=== PATIENT | female | born 1975 | race Caucasian/White ===

== ENCOUNTER 2016-07-21 00:50 | Emergency (ER) ==
[2016-07-21 01:05] VITALS: BP 124/83
[2016-07-21] MEDS ORDERED: DECADRON IM ONE (02:05)
[2016-07-21] MEDS ORDERED: PHENERGAN WITH CODEINE LIQUID PO ONE (02:14)
--- NOTE | 2016-07-21 02:16 | PROVIDER DOCUMENTATION ---
HPI-General Adult - General Source: patient - History of Present Illness -Gen Adult Nature of Presenting Problems: Pt is a 40 yof who presents to ER with CC of cold symptoms x4 days. Pt reports a white sputum productive cough that is worsened when lying down, sob, sore throat, chronic diarrhea, and 1 episode of vomiting yesterday after an extensive coughing fit. Pt denies F/N/c/p Location of Pain/Injury: reports: none Pain Radiation: reports: no radiation Severity: reports: moderate Onset/Duration: reports: 4 days ago Timing: reports: still present, constant Context/Activities at Onset: reports: cold exposure Modifying Factors: worse with: lying down Associated Symptoms: reports: cough (productive, white sputum), diarrhea, sinus congestion/drainage, shortness of breath, vomiting (x1, yesterday after coughing a lot), other (sore throat). denies: arm pain, back/neck pain, chest pain, constipation, fever/chills, headaches, loss of appetite, muscle aches <Christopher Butler - Last Filed: 07/21/16 02:18> <Rommel Cai - Last Filed: 07/21/16 02:20> - General Chief Complaint: Cold Symptoms Stated Complaint: CONGESTION, COUGH Time Seen by Provider: 07/21/16 01:56 Allergies/Adverse Reactions: Patient Allergies Allergy/AdvReac Type Severity Reaction Status Date / Time ketorolac tromethamine * Allergy Severe ANAPHYLAXIS Verified 07/21/16 01:50 [From Toradol] naproxen [From Naprosyn] Allergy Severe ANAPHYLAXIS Verified 07/21/16 01:50 tramadol Allergy Severe ANAPHYLAXIS Verified 07/21/16 01:50 Home Medications: Home Medication List Medication Instructions Recorded Confirmed Last Taken Type Dicyclomine [Bentyl] 20 mg PO TID AC PRN #30 capsule 07/16/16 07/21/16 07/17/16 Rx Hydrocodone/Acetaminophen [[place] 1 each PO Q4-6H PRN PRN #20 tablet 07/16/1607/16/16 Rx 7.5-325 Tablet] Codeine/Promethazine [Phenergan 10 ml PO TID PRN PRN #120 ml 07/21/16 Unknown Rx with Codeine] Review of Systems - Adult - REVIEW OF SYSTEMS - ADULT Constitutional: denies: chills, fever, fatique, night sweats Eyes: reports: no symptoms reported Ears, Nose, Mouth & Throat: reports: sinus problem (rhinorrhea), throat pain. denies: ear discharge, ear pain, nose pain, mouth/dental pain, hoarseness, throat swelling Cardiovascular: reports: no symptoms reported Respiratory: reports: chronic cough, cough, excessive sputum production (white) , shortness of breath. denies: dyspnea on exertion, hemoptysis, pleurisy, wheezing Gastrointestinal: reports: diarrhea, vomiting (x1 yesterday after coughing fit) . denies: abdominal pain, constipation, nausea, poor appetite Genitourinary: reports: no symptoms reported Musculoskeletal: reports: no symptoms reported Integumentary: reports: no symptoms reported Neurological: reports: no symptoms reported Psychiatric: reports: no symptoms reported Endocrine: reports: no symptoms reported Hematologic/Lymphatic: reports: no symptoms reported Allergic/Immunologic: reports: no symptoms reported All Other Systems: Reviewed and Negative <Christopher Butler - Last Filed: 07/21/16 02:18> Past History - Adult - PAST MEDICAL HISTORY-ADULT Review of Records: reports: Nursing Assessment Review, Medications Reviewed Cardiovascular: reports: HTN, hyperlipidemia Respiratory: reports: asthma Gastrointestinal: reports: GI bleed, IBS Neurological: reports: TIA Psychiatric: reports: anxiety, bipolar, depression, other (DID, Multiple Personality ) Endocrine/Immune: reports: Diabetes - PRIOR SURGERIES/PROCEDURES Surgical/Procedure History: reports: cholecystectomy, hysterectomy, , tonsillectomy, orthopedic (extremity) (shoulder), gastric bypass - IMMUNIZATION STATUS Childhood Immunizations: See Nurse Assessment Flu Vaccine: See Nurse Assessment <Christopher Butler - Last Filed: 07/21/16 02:18> Physical Exam-General - PHYSICAL EXAM-ADULT Initial Vital Signs Reviewed: Yes - CONSTITUTIONAL General Appearance: appears well, alert, mild distress. negative: lethargic, slow to respond, obtunded, combative - HEAD, EARS, NOSE, MOUTH & THROAT HENMT: normocephalic/atraumatic, moist mucous membranes, normal ENT inspection, TMs normal, pharynx normal. negative: pharyngeal erythema, tonsillar exudate, TM abnormal, TM obscurred by cerumen - RESPIRATORY Respiratory: chest non-tender, lungs clear, normal breath sounds. negative: respiratory distress, decreased breath sounds, accessory muscle use, wheezing - CARDIOVASCULAR Cardiovascular: normal peripheral pulses, regular rate, rhythm. negative: bradycardia, tachycardia, diastolic murmur, systolic murmur, irregularly irregular - GASTROINTESTINAL (ABDOMEN) Abdominal Exam: normal bowel sounds, non tender, soft. negative: abnormal bowel sounds, distended, tenderness, mass - LYMPHATIC Lymphatic: no adenopathy. negative: axilla node tender, cervical node tenderness, inguinal node tender - MUSCULOSKELETAL Back Exam: no CVA tenderness, no vertebral tenderness. negative: CVA tenderness , decreased range of motion, ecchymosis, muscle spasm, swelling, vertebral tenderness - SKIN Integumentary: normal color, normal turgor, warm/dry. negative: abrasion(s), blanching, diaphoresis, erythema, pallor, swelling, tenderness, warm - NEUROLOGIC Neurologic: grossly normal, no motor/sensory deficits - PSYCHIATRIC Psych/Mental Status: normal mood/affect, normal thought content, normal thought process, oriented x 3 <Christopher Butler - Last Filed: 07/21/16 02:18> Progress - PLAN OF CARE/RESULTS Progress/Plan/Lab Results: POC: labs/chest x-ray Vital Signs - 24 hr 07/21/16 01:04 Temperature 97.5 F L Pulse Rate 75 Respiratory 18 Rate Blood Pressure 124/83 O2 Sat by Pulse 100 Oximetry Orders Category Date Time Status CHEST-2 VIEWS [RAD] Stat Exams 07/21/16 01:05 Taken Flu Swab [INFLUENZA SCREEN A/B] Stat Lab 07/21/16 01:05 Completed Codeine/Promethazine [Phenergan with Codeine Liquid] Med 07/21/16 02:14 Discontinued 10 ml PO NOW ONE Dexamethasone [Decadron] Med 07/21/16 02:05 Discontinued 20 mg IM NOW ONE - XRAY 1 XRAY: Bilateral XRAY Study: Chest Impression: See EMR Report XRAY Interpretation: Normal <Christopher Butler - Last Filed: 07/21/16 02:18> Departure - Departure Time of Disposition Order: 02:19 Certified Medical Emergency: Emergent <Christopher Butler - Last Filed: 07/21/16 02:18> - Departure Time of Disposition Order: 02:19 Certified Medical Emergency: Emergent <Rommel Cai - Last Filed: 07/21/16 02:20> - Departure DIAGNOSIS: URI (upper respiratory infection) Qualifiers: URI type: unspecified URI Qualified Code(s): J06.9 - Acute upper respiratory infection, unspecified Disposition: HOME 01 Condition: Stable Prescriptions: Codeine/Promethazine [Phenergan with Codeine] 10 ml PO TID PRN PRN #120 ml PRN Reason: Cough Referrals: Carmella Huizar CRNP [Primary Care Provider] - Attestation - Scribe Verification/Attestation Scribe:: Christopher Butler Acting as Scribe for:: Rommel Cai Scribe documention review:: This chart was documented by a scribe and accurately reflects the service the provider performed and the decisions made by the provider. <Christopher Butler - Last Filed: 07/21/16 02:18> Physician Attestation
--- NOTE | 2016-07-21 09:49 | Diag Imaging Result Document ---
PROCEDURE NAME: CHEST-2 VIEWS - 07/21/2016 TWO VIEWS OF THE CHEST: FINDINGS: There is no evidence of acute cardiac or pulmonary disease. Compared to 07/06/2015, there has been no significant change in the appearance of the chest. IMPRESSION: No acute disease.
== END 2016-07-21 02:29 | disposition home or self-care (01) ==
LOC: ED 00:50
DX: J06.9 Acute upper respiratory infection, unspecified (principal); R05 Cough; J34.89 Other specified disorders of nose and nasal sinuses; R07.0 Pain in throat; R09.3 Abnormal sputum; R19.7 Diarrhea, unspecified; I10 Essential (primary) hypertension; E78.5 Hyperlipidemia, unspecified; Z86.73 Personal history of transient ischemic attack (TIA), and cerebral infarction without residual deficits; E11.9 Type 2 diabetes mellitus without complications; Z98.84 Bariatric surgery status
CPT/HCPCS: 71020; 87804

== ENCOUNTER 2016-08-11 10:41 | Emergency (ER) | payer OTHER ==
--- NOTE | 2016-08-11 10:53 | ED EKG INTERP ---
EKG Interpretation - EKG Time of EKG reading by physician:: 10:48 EKG Read and Signed by:: John Sweet EKG Interpretation (*Must complete 3 of following elements*): Abnormal Rate: 78 (cannot rule out anterior infarct, age undetermined) Rhythm: NSR Attestation - Scribe Verification/Attestation Scribe:: Kim Fisher Acting as Scribe for:: John Sweet Scribe documention review:: This chart was documented by a scribe and accurately reflects the service the provider performed and the decisions made by the provider.
[2016-08-11] MEDS ORDERED: ASPIRIN PO STA (11:05)
[2016-08-11] MEDS ORDERED: ZOFRAN IV ONE (11:10)
[2016-08-11] MEDS ORDERED: NS 1,000 ML IV ONE (11:10)
[2016-08-11] MEDS ORDERED: PEPCID IV ONE (11:11)
[2016-08-11] MEDS ORDERED: SODIUM CHLORIDE 0.9% INJ ONE (11:11)
[2016-08-11 11:21] LABS: MANUAL DIFF NEEDED? NO
[2016-08-11 11:25] LABS: BASO% 0.6 % (0.0-0.8); EOS# 0.17 X1000 (0.0-0.7); EOS% 3.2 % (0.0-10.0); HEMATOCRIT 38.9 % (37.0-47.0); HEMOGLOBIN 13.3 g/dL (12.0-16.0); LYMPH# 2.08 X1000 (1.2-3.4); MCH 31.3 PG (27-31); MCHC 34.2 g/dL (33-37); MCV 91.5 FL (81-99); MONO# 0.33 X1000 (0.11-0.59); MONO% 6.2 % (1.7-9.3); MPV 11.6 FL (7.4-10.4); PLT 214 X1000 (130-400); RBC 4.25 XMIL (4.2-5.4)
[2016-08-11 11:35] LABS: AGAP 12; ALBUMIN 4.5 g/dL (3.5-5.0); ALKALINE PHOSPHATASE 94 U/L (32-104); BUN 9 mg/dL (8-22); CALCIUM 8.9 mg/dL (8.8-10.2); CHLORIDE 99 mmol/L (98-107); CK PROFILE 167 U/L (24-173); COSMO 272; GOT 20 U/L (10-30); GPT 14 U/L (10-36); POTASSIUM 4.2 mmol/L (3.5-5.1); SODIUM 137 mmol/L (136-145); TCO2 26 mmol/L (25-35); TOTAL BILIRUBIN 0.24 mg/dL (0.20-1.00); TOTAL PROTEIN 6.9 g/dL (6.3-8.3)
[2016-08-11 11:41] LABS: INR 0.99; PROTIME 10.5 Seconds (9.2-11.7)
--- NOTE | 2016-08-11 12:03 | PROVIDER DOCUMENTATION ---
HPI-Chest Pain - General Chief Complaint: Shortness of Breath Stated Complaint: SOB Time Seen by Provider: 08/11/16 10:54 Source: patient Allergies/Adverse Reactions: Patient Allergies Allergy/AdvReac Type Severity Reaction Status Date / Time ketorolac tromethamine * Allergy Severe ANAPHYLAXIS Verified 08/11/16 11:05 [From Toradol] naproxen [From Naprosyn] Allergy Severe ANAPHYLAXIS Verified 08/11/16 11:05 tramadol Allergy Severe ANAPHYLAXIS Verified 08/11/16 11:05 Home Medications: Home Medication List Medication Instructions Recorded Confirmed Last Taken Type Omeprazole 20 mg PO DAILY #20 tablet. 08/11/16 Unknown Rx - History of Present Illness-CP Nature of Presenting Problem: Woke this am with heaviness in chest, felt lightheaded. Had several episodes of vomiting. No prior hx of heart problems. Has had recent cough, no fever. Has recently che driving on long car trip Location: reports: substernal Chest Pain Radiation: reports: no radiation Quality of Pain: reports: pressure Onset/Duration: 4-6 hours ago Timing: still present Context/Activities at Onset: reports: none Associated Symptoms: reports: dizziness, nausea, vomiting Review of Systems - Adult - REVIEW OF SYSTEMS - ADULT Constitutional: reports: see HPI Eyes: reports: no symptoms reported Ears, Nose, Mouth & Throat: reports: no symptoms reported Cardiovascular: reports: see HPI, chest pain Respiratory: reports: see HPI, shortness of breath Gastrointestinal: reports: nausea, vomiting Genitourinary: reports: no symptoms reported Musculoskeletal: reports: no symptoms reported Integumentary: reports: no symptoms reported Past History - Adult - PAST MEDICAL HISTORY-ADULT Review of Records: reports: Nursing Assessment Review, Medications Reviewed Major Childhood Illnesses: reports: history unknown Cardiovascular: reports: HTN, hyperlipidemia Respiratory: reports: asthma Gastrointestinal: reports: GI bleed, IBS Neurological: reports: TIA Psychiatric: reports: anxiety, bipolar, depression, other (DID, Multiple Personality ) Endocrine/Immune: reports: Diabetes - PRIOR SURGERIES/PROCEDURES Surgical/Procedure History: reports: cholecystectomy, hysterectomy, , tonsillectomy, orthopedic (extremity) (shoulder), gastric bypass - IMMUNIZATION STATUS Childhood Immunizations: See Nurse Assessment Flu Vaccine: See Nurse Assessment Physical Exam-General - PHYSICAL EXAM-ADULT Initial Vital Signs Reviewed: Yes - CONSTITUTIONAL General Appearance: appears well, alert, no apparent distress - EYES Eyes: PERRL/EOMI - HEAD, EARS, NOSE, MOUTH & THROAT HENMT: normocephalic/atraumatic, moist mucous membranes, normal ENT inspection - NECK Neck: non-tender, full range of motion, supple - RESPIRATORY Respiratory: lungs clear, normal breath sounds, other (mild midline tenderness to palpation) - CARDIOVASCULAR Cardiovascular: normal peripheral pulses, regular rate, rhythm, no edema, no gallop, no JVD, no murmur - GASTROINTESTINAL (ABDOMEN) Abdominal Exam: normal bowel sounds, soft, no organomegaly, tenderness (mild epigastric) - LYMPHATIC Lymphatic: no adenopathy - MUSCULOSKELETAL Back Exam: normal inspection, no CVA tenderness, no vertebral tenderness Extremity: normal range of motion, non-tender, normal inspection, no pedal edema - SKIN Integumentary: normal color, normal turgor, warm/dry - NEUROLOGIC Neurologic: grossly normal, no motor/sensory deficits Progress - PLAN OF CARE/RESULTS Progress/Plan/Lab Results: Laboratory Tests 08/11/16 08/11/16 08/11/16 10:59 10:59 10:59 WBC 5.33 RBC 4.25 Hgb 13.3 Hct 38.9 MCV 91.5 MCH 31.3 H MCHC 34.2 RDW Std Deviation 12.5 Plt Count 214 MPV 11.6 H Immature Gran % (Auto) 0.0 Neut % (Auto) 51.0 Lymph % (Auto) 39.0 [place] % (Auto) 6.2 Eos % (Auto) 3.2 Baso % (Auto) 0.6 Immature Gran # (Auto) 0.00 Neut # (Auto) 2.72 Lymph # (Auto) 2.08 [place] # (Auto) 0.33 Eos # (Auto) 0.17 Baso # (Auto) 0.03 PT INR PTT (Actin FS) D-Dimer 0.20 Sodium 137 Potassium 4.2 Chloride 99 Carbon Dioxide 26 Anion Gap 12 BUN 9 Creatinine 0.8 Estimated GFR/1.73 m2 > 60 BUN/Creatinine Ratio 11 Glucose 83 Calculated Osmolality 272 Calcium 8.9 Magnesium 2.0 Total Bilirubin 0.24 AST 20 ALT 14 Alkaline Phosphatase 94 Creatine Kinase 167 Troponin T Lan-S-Dvcwhckitre Pept Total Protein 6.9 Albumin 4.5 Globulin 2.4 Albumin/Globulin Ratio 1.9 Amylase Lipase 08/11/16 08/11/16 08/11/16 10:59 10:59 10:59 WBC RBC Hgb Hct MCV MCH MCHC RDW Std Deviation Plt Count MPV Immature Gran % (Auto) Neut % (Auto) Lymph % (Auto) [place] % (Auto) Eos % (Auto) Baso % (Auto) Immature Gran # (Auto) Neut # (Auto) Lymph # (Auto) [place] # (Auto) Eos # (Auto) Baso # (Auto) PT 10.5 INR 0.99 PTT (Actin FS) 25.0 D-Dimer Sodium Potassium Chloride Carbon Dioxide Anion Gap BUN Creatinine Estimated GFR/1.73 m2 BUN/Creatinine Ratio Glucose Calculated Osmolality Calcium Magnesium Total Bilirubin AST ALT Alkaline Phosphatase Creatine Kinase Troponin T < 0.010 Jqw-A-Dlvqjdmacuc Pept 32 Total Protein Albumin Globulin Albumin/Globulin Ratio Amylase Lipase 08/11/16 08/11/16 14:58 14:58 WBC RBC Hgb Hct MCV MCH MCHC RDW Std Deviation Plt Count MPV Immature Gran % (Auto) Neut % (Auto) Lymph % (Auto) [place] % (Auto) Eos % (Auto) Baso % (Auto) Immature Gran # (Auto) Neut # (Auto) Lymph # (Auto) [place] # (Auto) Eos # (Auto) Baso # (Auto) PT INR PTT (Actin FS) D-Dimer Sodium Potassium Chloride Carbon Dioxide Anion Gap BUN Creatinine Estimated GFR/1.73 m2 BUN/Creatinine Ratio Glucose Calculated Osmolality Calcium Magnesium Total Bilirubin AST ALT Alkaline Phosphatase Creatine Kinase 129 Troponin T < 0.010 Sjg-X-Tqiukugbabm Pept Total Protein Albumin Globulin Albumin/Globulin Ratio Amylase 42 Lipase 23 Orders Category Date Time Status Cardiac Monitoring DIRECTED Care 08/11/16 11:06 Active Saline Loc NOW Care 08/11/16 11:06 Active CHEST-PORTABLE [RAD] Stat Exams 08/11/16 11:11 Completed AMYLASE [CHEM] Stat Lab 08/11/16 14:58 Completed CBC WITH ELECTRONIC DIFF [HEME] Stat Lab 08/11/16 10:59 Completed CK PROFILE [SP CHEM] Stat Lab 08/11/16 10:59 Completed CK PROFILE [SP CHEM] Stat Lab 08/11/16 14:58 Completed COMPREHENSIVE METABOLIC PANEL [CHEM] Stat Lab 08/11/16 10:59 Completed D-DIMER [CHEM] Stat Lab 08/11/16 10:59 Completed LIPASE [CHEM] Stat Lab 08/11/16 14:58 Completed MAGNESIUM [CHEM] Stat Lab 08/11/16 10:59 Completed PRO B-NATRIURETIC PEPTIDE Stat Lab 08/11/16 10:59 Completed PROTIME WITH INR [COAG] Stat Lab 08/11/16 10:59 Completed PTT [COAG] Stat Lab 08/11/16 10:59 Completed TROPONIN T Stat Lab 08/11/16 10:59 Completed TROPONIN T Stat Lab 08/11/16 14:58 Completed 0.9% Sodium Chloride Inj [Ns] 1,000 ml Med 08/11/16 11:10 Discontinued IV 999 mls/hr Acetaminophen [Tylenol] Med 08/11/16 13:46 Discontinued 1,000 mg PO NOW ONE Aspirin Med 08/11/16 11:05 Discontinued 325 mg PO STAT STA Famotidine [Pepcid] Med 08/11/16 11:11 Discontinued 20 mg IV NOW ONE Lido/Rader Alk/Al&mg Hydrox [G.i. Cocktail] Med 08/11/16 13:44 Discontinued 30 ml PO NOW ONE Ondansetron [Zofran] Med 08/11/16 11:10 Discontinued 4 mg IV NOW ONE Sodium Chloride 0.9% Med 08/11/16 11:11 Discontinued 5 - 10 ml INJ NOW ONE EKG [EKG] Stat Ther 08/11/16 10:43 Ordered EKG [EKG] Stat Ther 08/11/16 13:50 Ordered Vital Signs Temp Pulse Resp BP Pulse Ox 08/11/16 16:06 98.1 F 63 17 97/69 98 08/11/16 15:58 71 16 97/69 98 08/11/16 13:33 66 13 97/52 100 08/11/16 13:23 63 24 119/76 100 08/11/16 10:44 97.4 F L 81 18 137/85 100 ketorolac tromethamine * [From Toradol] Allergy (Severe, Verified 08/11/16 11:05 ) ANAPHYLAXIS naproxen [From Naprosyn] Allergy (Severe, Verified 08/11/16 11:05) ANAPHYLAXIS tramadol Allergy (Severe, Verified 08/11/16 11:05) ANAPHYLAXIS Omeprazole 20 mg PO DAILY #20 tablet. 08/11/16 Laboratory 08/11/16 08/11/16 08/11/16 14:58 14:58 10:59 WBC RBC Hgb Hct MCV MCH MCHC RDW Std Deviation Plt Count MPV Immature Gran % (Auto) Neut % (Auto) Lymph % (Auto) [place] % (Auto) Eos % (Auto) Baso % (Auto) Immature Gran # (Auto) Neut # (Auto) Lymph # (Auto) [place] # (Auto) Eos # (Auto) Baso # (Auto) PT INR PTT (Actin FS) D-Dimer Sodium Potassium Chloride Carbon Dioxide Anion Gap BUN Creatinine Estimated GFR/1.73 m2 BUN/Creatinine Ratio Glucose Calculated Osmolality Calcium Magnesium Total Bilirubin AST ALT Alkaline Phosphatase Creatine Kinase 129 Troponin T < 0.010 < 0.010 Pkt-G-Rnwcevabkuy Pept Total Protein Albumin Globulin Albumin/Globulin Ratio Amylase 42 Lipase 23 08/11/16 08/11/16 08/11/16 10:59 10:59 10:59 WBC RBC Hgb Hct MCV MCH MCHC RDW Std Deviation Plt Count MPV Immature Gran % (Auto) Neut % (Auto) Lymph % (Auto) [place] % (Auto) Eos % (Auto) Baso % (Auto) Immature Gran # (Auto) Neut # (Auto) Lymph # (Auto) [place] # (Auto) Eos # (Auto) Baso # (Auto) PT 10.5 INR 0.99 PTT (Actin FS) 25.0 D-Dimer 0.20 Sodium Potassium Chloride Carbon Dioxide Anion Gap BUN Creatinine Estimated GFR/1.73 m2 BUN/Creatinine Ratio Glucose Calculated Osmolality Calcium Magnesium Total Bilirubin AST ALT Alkaline Phosphatase Creatine Kinase Troponin T Zdk-X-Txhylyenyyb Pept 32 Total Protein Albumin Globulin Albumin/Globulin Ratio Amylase Lipase 08/11/16 08/11/16 10:59 10:59 WBC 5.33 RBC 4.25 Hgb 13.3 Hct 38.9 MCV 91.5 MCH 31.3 H MCHC 34.2 RDW Std Deviation 12.5 Plt Count 214 MPV 11.6 H Immature Gran % (Auto) 0.0 Neut % (Auto) 51.0 Lymph % (Auto) 39.0 [place] % (Auto) 6.2 Eos % (Auto) 3.2 Baso % (Auto) 0.6 Immature Gran # (Auto) 0.00 Neut # (Auto) 2.72 Lymph # (Auto) 2.08 [place] # (Auto) 0.33 Eos # (Auto) 0.17 Baso # (Auto) 0.03 PT INR PTT (Actin FS) D-Dimer Sodium 137 Potassium 4.2 Chloride 99 Carbon Dioxide 26 Anion Gap 12 BUN 9 Creatinine 0.8 Estimated GFR/1.73 m2 > 60 BUN/Creatinine Ratio 11 Glucose 83 Calculated Osmolality 272 Calcium 8.9 Magnesium 2.0 Total Bilirubin 0.24 AST 20 ALT 14 Alkaline Phosphatase 94 Creatine Kinase 167 Troponin T Apy-C-Bxicnphfybk Pept Total Protein 6.9 Albumin 4.5 Globulin 2.4 Albumin/Globulin Ratio 1.9 Amylase Lipase - EKG 1 Time of EKG reading by physician:: 11:00 EKG Read and Signed by:: Laxmi Ruth EKG Interpretation (*Must complete 3 of following elements*): Normal 2 Time of EKG reading by physician:: 14:30 EKG Read and Signed by:: Laxmi Ruth EKG Interpretation (*Must complete 3 of following elements*): Normal - XRAY 1 XRAY Study: Chest (normal) Impression: Normal Departure - Departure Time of Disposition Order: 15:46 DIAGNOSIS: Chest pain of uncertain etiology, GERD (gastroesophageal reflux disease) Disposition: HOME 01 Certified Medical Emergency: Emergent Condition: Stable Additional Instructions: Rest. Use tylenol for discomfort. Take omeprozole 20 mg daily for your stomach. Stop smoking. Avoid alcohol. See your regular doctor if symptoms not resolved in 2 days. You need further evaluation. Return to emergency department if your symptoms worsen. ED Follow Up Instructions: You have been treated by a care provider in the Emergency Department. These instructions are being provided to you so you can have an understanding of how to care for yourself upon discharge. Upon discharge from the Emergency Department, you are responsible for making arrangements for follow-up care by a physician of your choice. Take all prescribed medications as directed. Return to the Emergency Department immediately for any new or worsening symptoms. You may call the Physician Referral phone number at [phone] to obtain a list of Physicians who are taking new patients. Prescriptions: Omeprazole 20 mg PO DAILY #20 tablet. Referrals: Carmella Huizar CRNP [Primary Care Provider] - Forms: Return to School/Parent Work Instructions: Indigestion, Tdmm-al-Wdab, Nonspecific Chest Pain, Ghfl-km-Ojtf
[2016-08-11] MEDS ORDERED: G.I. COCKTAIL PO ONE (13:44)
[2016-08-11] MEDS ORDERED: TYLENOL PO ONE (13:46)
--- NOTE | 2016-08-11 14:33 | Diag Imaging Result Document ---
PROCEDURE NAME: CHEST-PORTABLE - 08/11/2016 SINGLE FRONTAL RADIOGRAPH OF THE CHEST: COMPARISON: 07/21/2016. FINDINGS: The lungs are grossly clear. There is no discrete pleural fluid collection or pneumothorax. The cardiomediastinal silhouette and upper airway are grossly unremarkable. IMPRESSION: No evidence of acute chest pathology.
[2016-08-11 15:32] LABS: AMYLASE 42 U/L (20-200); CK PROFILE 129 U/L (24-173); LIPASE 23 U/L (13-60)
[2016-08-11 15:59] VITALS: BP 97/69
--- NOTE | 2016-08-12 05:41 | EKG Report ---
Test Performed on : 08/11/2016 2:23:27 PM Test Reason : sob Blood Pressure : / mmHG Vent. Rate : 057 BPM Atrial Rate : 057 BPM P-R Int : 152 ms QRS Dur : 078 ms QT Int : 436 ms P-R-T Axes : 015 022 012 degrees QTc Int : 424 ms Sinus bradycardia. Otherwise normal ECG When compared with ECG of 11-AUG-2016 10:48, (Unconfirmed) No significant change was found Unconfirmed Result
--- NOTE | 2016-08-12 05:42 | EKG Report ---
Test Performed on : 08/11/2016 10:48:00 AM Test Reason : sob Blood Pressure : / mmHG Vent. Rate : 078 BPM Atrial Rate : 078 BPM P-R Int : 138 ms QRS Dur : 088 ms QT Int : 390 ms P-R-T Axes : 023 021 017 degrees QTc Int : 444 ms Normal sinus rhythm. Cannot rule out Anterior infarct , age undetermined Abnormal ECG When compared with ECG of 18-SEP-2015 18:08, No significant change was found Unconfirmed Result
== END 2016-08-11 16:07 | disposition home or self-care (01) ==
LOC: ED 10:41
DX: K21.9 Gastro-esophageal reflux disease without esophagitis (principal); R07.9 Chest pain, unspecified; R42 Dizziness and giddiness; R11.2 Nausea with vomiting, unspecified; R06.02 Shortness of breath; I10 Essential (primary) hypertension; E78.5 Hyperlipidemia, unspecified; Z86.73 Personal history of transient ischemic attack (TIA), and cerebral infarction without residual deficits; E11.9 Type 2 diabetes mellitus without complications; F41.9 Anxiety disorder, unspecified; F31.9 Bipolar disorder, unspecified; F32.9 Major depressive disorder, single episode, unspecified; F44.81 Dissociative identity disorder; Z98.84 Bariatric surgery status; R10.13 Epigastric pain; R94.31 Abnormal electrocardiogram [ECG] [EKG]
CPT/HCPCS: 71010; 80053; 82150; 82550; 83690; 83735; 83880; 84484; 85025; 85379; 85610; 85730; 93005; 96374; 96375; J2405; J7030; S0028